=== PATIENT | male | born 1970 | race Hispanic/Latino ===

== ENCOUNTER 2019-12-29 18:27 | Emergency (ER) | payer SELFPAY ==
[2019-12-29] MEDS ORDERED: MEPERIDINE HCL 25 MG/ML SYR ONE (20:00)
[2019-12-29] MEDS ORDERED: COLCHICINE 0.6 MG TAB ONE (20:01)
[2019-12-29] MEDS ORDERED: dexAMETHasone 4 MG/ML VIAL ONE (20:01)
[2019-12-29] MEDS ORDERED: LIDOCAINE 2% MPF 5 ML VIAL ONE (20:30)
[2019-12-29 22:08] LABS: Appearance TURBID (CLEAR); Body Fluid Source SYNOVIAL; Color of fluid Pink (COLORLESS)
[2019-12-29 22:51] LABS: Body Fluid WBC 16927 /mm^3
--- NOTE | 2019-12-30 00:33 | ER ---
Nurse's Notes [facility] Name: John Atkins Age: 49 yrs Sex: Male : 1970 Arrival Date: 12/29/2019 Time: 18:30 Bed 27 Private MD: Diagnosis: Effusion, left knee;Inflammatory arthritis, left knee, unspecified Presentation: 12/29 18:32 Transition of care: patient was not received from another setting of care. Care prior sv to arrival: None. 18:32 Method Of Arrival: Wheelchair sv 18:33 Presenting complaint: Patient states: left knee pain (hx Gout) that has been ongoing, sv reports was at the clinic today and felt nauseous and felt like he was going to pass out. Onset of symptoms was December 29, 2019. 18:33 Acuity: CASS 3 sv 18:36 Note interpreter for the deaf ID #[id number]. sv 19:49 Risk Assessment: Do you want to hurt yourself or someone else? Patient reports no ca1 desire to harm self or others. Initial Sepsis Screen: Does the patient meet any 2 criteria? No. Patient's initial sepsis screen is negative. Does the patient have a suspected source of infection? No. Patient's initial sepsis screen is negative. Triage Assessment: 18:36 General: Appears in no apparent distress. uncomfortable, well developed, Behavior is sv cooperative, appropriate for age, restless. Pain: Complains of pain in left knee. Neuro: Level of Consciousness is awake, alert, obeys commands, Oriented to person, place, time, situation. Respiratory: Respiratory effort is even, unlabored. Historical: - Allergies: 18:34 No Known Allergies; sv - PMHx: 18:34 Gout; sv - PSHx: 18:34 None; sv - Immunization history:: Adult Immunizations up to date. - Coronavirus screen:: The patient has NOT traveled to [place] in the past 14 days. Proceed with normal triage process as indicated. The patient has NOT had contact with known/suspected case of Coronavirus? Proceed with normal triage procedures. - Social history:: Smoking status: Patient denies any tobacco usage or history of. - Family history:: not pertinent. - Ebola Screening: : No symptoms or risks identified at this time. - Hospitalizations: : No recent hospitalization is reported. Screenin:45 Abuse screen: Denies threats or abuse. Denies injuries from another. Nutritional ca1 screening: No deficits noted. Tuberculosis screening: No symptoms or risk factors identified. Fall Risk Ambulatory Aid- Crutches/Cane/Walker (15 pts). Gait- Impaired (20 pts.). Assessment: 19:45 General: Appears in no apparent distress. uncomfortable, Behavior is calm, cooperative, ca1 appropriate for age. Pain: Complains of pain in left knee. Neuro: Level of Consciousness is awake, alert, obeys commands, Oriented to person, place, time, situation, Appropriate for age. Derm: Skin is intact, is healthy with good turgor, Skin is pink, warm \T\ dry. Musculoskeletal: Circulation, motion, and sensation intact. Capillary refill < 3 seconds, Range of motion: limited in left knee Swelling present in left leg and left knee. 20:50 Reassessment: Patient appears in no apparent distress at this time. Patient and/or ca1 family updated on plan of care and expected duration. Pain level reassessed. Patient is alert, oriented x 3, equal unlabored respirations, skin warm/dry/pink. 21:55 Reassessment: Patient appears in no apparent distress at this time. Patient and/or ca1 family updated on plan of care and expected duration. Pain level reassessed. Patient is alert, oriented x 3, equal unlabored respirations, skin warm/dry/pink. 23:43 Reassessment: Patient is alert, oriented x 3, equal unlabored respirations, skin bb warm/dry/pink. pt verbalized understanding of and agrees to plan of care discharge instructions given pt assisted to exit via wheelchair accompanied by family. Vital Signs: 18:32 BP 115 / 71; Pulse 107; Resp 22; Temp 97.2; Pulse Ox 99% ; Weight 99.79 kg; Height 5 sv ft. 7 in. (170.18 cm); 19:45 BP 146 / 86; Pulse 98; Resp 17 S; Pulse Ox 98% on R/A; ca1 20:50 BP 113 / 62; Pulse 106; Resp 17 S; Pulse Ox 95% on R/A; ca1 21:55 BP 115 / 69; Pulse 100; Resp 17 S; Pulse Ox 97% on R/A; ca1 23:42 BP 127 / 74; Pulse 104; Resp 18; Temp 97.9(O); Pulse Ox 97% on R/A; bb 18:32 Body Mass Index 34.46 (99.79 kg, 170.18 cm) sv ED Course: 18:30 Patient arrived in ED. as 18:31 Arm band placed on. sv 18:34 Triage completed. sv 19:40 Jamaal Mora MD is Attending Physician. rn 19:42 Eun Ferreira RN is Primary Nurse. ca1 19:45 Patient has correct armband on for positive identification. Bed in low position. Call ca1 light in reach. Side rails up X 1. Pulse ox on. NIBP on. 19:50 Inserted saline lock: 20 gauge in left antecubital area, using aseptic technique. ca1 20:25 Procedure consent explained by physician, signed by patient. ca1 20:56 L Knee Needle aspiration performed by Dr. Mora. Consent signed. Set up tray. Specimen ca1 obtained and sent to lab. Pt tolerated procedure well. 23:45 IV discontinued, intact, bleeding controlled, No redness/swelling at site. Pressure bb dressing applied. Administered Medications: 19:53 Drug: Colcrys 1.2 mg Route: PO; ca1 21:57 Follow up: Response: No adverse reaction; Pain is decreased ca1 19:55 Drug: Demerol 25 mg {Note: RASS - 0.} Route: IVP; Site: left antecubital; ca1 21:57 Follow up: Response: No adverse reaction; Pain is decreased; RASS: Alert and Calm (0) ca1 20:00 Drug: Decadron - Dexamethasone 10 mg Route: IVP; Site: left antecubital; ca1 21:57 Follow up: Response: No adverse reaction; Pain is decreased ca1 20:50 Drug: Lidocaine (1 %) 1 vials {Note: at L knee by Dr. Mora.} Volume: 5 ml; Route: ca1 Infiltration; Outcome: 23:12 Discharge ordered by . rn 23:44 Discharged to home via wheelchair, with family. bb 23:44 Condition: stable 23:44 Discharge instructions given to patient, Instructed on discharge instructions, follow up and referral plans. medication usage, Demonstrated understanding of instructions, follow-up care, medications, Prescriptions given X 2. 23:45 Patient left the ED. bb Signatures: Shauna Albert RN RN sv Martinez, Amelia as Ballard, Brenda, RN RN bb Jamaal Mora MD MD rn Acob Eun, RN RN ca1 Corrections: (The following items were deleted from the chart) 18:35 18:32 BP 115 / 71; Pulse 107bpm; Resp 22bpm; Pulse Ox 99%; Temp 97.2F; sv sv 19:49 19:45 Musculoskeletal: Circulation, motion, and sensation intact. Capillary refill < 3 ca1 seconds, Range of motion: limited in left knee ca1 21:26 20:56 L Knee Needle aspiration by Dr. Mora. Consent signed. Set up tray. Specimen ca1 obtained. Pt tolerated procedure well. ca1
--- NOTE | 2019-12-30 00:34 | EDPHYS ---
Physician Documentation [facility] Name: John Atkins Age: 49 yrs Sex: Male : 1970 Arrival Date: 12/29/2019 Time: 18:30 Bed 27 Private MD: ED Physician Jamaal Mora HPI: 12/29 19:47 This 49 yrs old Male presents to ER via Wheelchair with complaints of Knee rn Pain. 19:47 The patient presents with pain, swelling. The complaints affect the left knee. Onset: rn The symptoms/episode began/occurred 3 day(s) ago. Modifying factors: The symptoms are alleviated by remaining still, the symptoms are aggravated by movement, weight bearing, bending knee. Associated signs and symptoms: Pertinent positives: swelling, Pertinent negatives fever, weakness. Severity of symptoms: At their worst the symptoms were moderate, in the emergency department the symptoms are unchanged. The patient has experienced similar episodes in the past. Reports has gout, has been diagnosed before years ago, takes allopurinol and colchicine, but ran out about one month ago, reports several similar identical episodes in left knee before as well as right knee and left great toe. No trauma. No fever. Reports came for pain. . Historical: - Allergies: 18:34 No Known Allergies; sv - PMHx: 18:34 Gout; sv - PSHx: 18:34 None; sv - Immunization history:: Adult Immunizations up to date. - Coronavirus screen:: The patient has NOT traveled to [place] in the past 14 days. Proceed with normal triage process as indicated. The patient has NOT had contact with known/suspected case of Coronavirus? Proceed with normal triage procedures. - Social history:: Smoking status: Patient denies any tobacco usage or history of. - Family history:: not pertinent. - Ebola Screening: : No symptoms or risks identified at this time. - Hospitalizations: : No recent hospitalization is reported. ROS: 19:47 Constitutional: Negative for fever, chills, and weight loss, Eyes: Negative for injury, rn pain, redness, and discharge, Neck: Negative for injury, pain, and swelling, Cardiovascular: Negative for chest pain, palpitations, and edema, Respiratory: Negative for shortness of breath, cough, wheezing, and pleuritic chest pain, Abdomen/GI: Negative for abdominal pain, nausea, vomiting, diarrhea, and constipation, MS/Extremity: + left knee pain, negative for injury Skin: Negative for injury, rash, and discoloration, Neuro: Negative for headache, weakness, numbness, tingling, and seizure. Exam: 19:47 Constitutional: This is a well developed, well nourished patient who is awake, alert, rn appears uncomfortable Head/Face: Normocephalic, atraumatic. ENT: MMM Cardiovascular: Regular rate and rhythm. No pulse deficits. Respiratory: No increased work of breathing, no retractions or nasal flaring. Abdomen/GI: soft, non-tender MS/ Extremity: Pulses equal, no cyanosis. + moderate left knee effusion with some warmth, no erythema, + painful ROM left knee Neuro: Awake and alert, GCS 15, oriented to person, place, time, and situation. Cranial nerves II-XII grossly intact. Motor strength 5/5 in all extremities. Sensory grossly intact. Vital Signs: 18:32 BP 115 / 71; Pulse 107; Resp 22; Temp 97.2; Pulse Ox 99% ; Weight 99.79 kg; Height 5 sv ft. 7 in. (170.18 cm); 19:45 BP 146 / 86; Pulse 98; Resp 17 S; Pulse Ox 98% on R/A; ca1 20:50 BP 113 / 62; Pulse 106; Resp 17 S; Pulse Ox 95% on R/A; ca1 21:55 BP 115 / 69; Pulse 100; Resp 17 S; Pulse Ox 97% on R/A; ca1 23:42 BP 127 / 74; Pulse 104; Resp 18; Temp 97.9(O); Pulse Ox 97% on R/A; bb 18:32 Body Mass Index 34.46 (99.79 kg, 170.18 cm) sv Procedures: 20:58 Joint Treatment: Aspiration of left knee using 20g spinal needle after lidocaine rn administered. Removed 5 ml's of yellow fluid, bloody fluid, Specimen sent to lab. Dressed with band aid, Patient tolerated well. MDM: 19:40 Patient medically screened. rn 19:47 ED course: Recommended joint aspiration to confirm gout, patient declines, states came rn here for pain medication and knows it is gout. Identical to previous episodes of gout.. 20:30 Differential diagnosis: Gout, knee effusion. Data reviewed: vital signs, nurses notes. rn Counseling: I had a detailed discussion with the patient and/or guardian regarding:. ED course: Spoke again with patient, feels better, now ok with joint aspiration, consented. . 23:11 ED course: Pt feels much better, gram stain neg for organisms, WBC only 5-10 on gram rn stain, cell count consistent more with inflammatory arthritis and given history of identical episodes in past, fits with his story. Is not diabetic/immunocompromised/use IV drugs. Will dc home with pain meds and steroids, with pcp f/u, and given return precautions. Will f/u fluid culture and call back if needed. . 23:14 ED course: Pt with negative crystals in fluid, told him and likely has rn inflammatory arthritis and may not have been gout in past since synovial fluid never performed. . 12/29 20:58 Order name: Fluid Cell Count,Body rn 12/29 20:58 Order name: Crystals, Fluid rn 12/29 20:58 Order name: Body Fluid Culture 12/29 23:02 Order name: Body Fluid Crystals EDKS 12/29 23:02 Order name: Body Fluid Cell Count EDKS 12/29 23:09 Order name: Body Fluid Culture [facility] 12/29 19:46 Order name: IV Start; Complete Time: 20:08 rn 12/29 23:14 Order name: Body Fluid Culture EDKS Administered Medications: 19:53 Drug: Colcrys 1.2 mg Route: PO; ca1 21:57 Follow up: Response: No adverse reaction; Pain is decreased ca1 19:55 Drug: Demerol 25 mg {Note: RASS - 0.} Route: IVP; Site: left antecubital; ca1 21:57 Follow up: Response: No adverse reaction; Pain is decreased; RASS: Alert and Calm (0) ca1 20:00 Drug: Decadron - Dexamethasone 10 mg Route: IVP; Site: left antecubital; ca1 21:57 Follow up: Response: No adverse reaction; Pain is decreased ca1 20:50 Drug: Lidocaine (1 %) 1 vials {Note: at L knee by Dr. Mora.} Volume: 5 ml; Route: ca1 Infiltration; Disposition: 12/29/19 23:12 Discharged to Home. Impression: Effusion, left knee, Inflammatory arthritis, left knee, unspecified. - Condition is Stable. - Discharge Instructions: Arthritis, Knee Effusion, Reactive Arthritis. - Prescriptions for Tylenol- Codeine #3 300-30 mg Oral Tablet - take 1 tablet by ORAL route every 6 hours As needed; 20 tablet. Medrol (Stewart) 4 mg Oral Tablets, Dose Pack - take 1 tablet by ORAL route as directed - follow package instructions; 1 packet. - Medication Reconciliation Form, Thank You Letter, Antibiotic Education, Prescription Opioid Use form. - Follow up: Private Physician; When: As needed; Reason: Recheck today's complaints, Re-evaluation by your physician. - Problem is an acute exacerbation. - Symptoms have improved. Signatures: Dispatcher [employer] EDMS Shauna Albert RN RN sv Echo Duenas RN RN bb Jamaal Mora MD MD rn Acob, KELSEY Haq RN ca1 Corrections: (The following items were deleted from the chart) 23:45 23:12 12/29/2019 23:12 Discharged to Home. Impression: Effusion, left knee; bb Inflammatory arthritis, left knee, unspecified. Condition is Stable. Discharge Instructions: Gout, Knee Effusion. Prescriptions for Tylenol-Codeine #3 300-30 mg Oral Tablet - take 1 tablet by ORAL route every 6 hours As needed; 20 tablet, Allopurinol 100 mg Oral Tablet - take 1 tablet by ORAL route once daily Do not take during acute gout flare/attack; 30 tablet, Medrol (Stewart) 4 mg Oral Tablets, Dose Pack - take 1 tablet by ORAL route as directed - follow package instructions; 1 packet. and Forms are Medication Reconciliation Form, Thank You Letter, Antibiotic Education, Prescription Opioid Use. Follow up: Private Physician; When: As needed; Reason: Recheck today's complaints, Re-evaluation by your physician. Problem is an acute exacerbation. Symptoms have improved. rn
[2019-12-30 03:25] VITALS: O2SAT 97
[2019-12-30 03:26] VITALS: BP 127/74; TEMP 97.9
== END 2019-12-29 23:45 | disposition home or self-care (01) ==
LOC: ER 18:27
PROC: 0S9G3ZX Drainage of Left Ankle Joint, Percutaneous Approach, Diagnostic (ICD-10-PCS; principal; 2019-12-29)
DX: M25.462 Effusion, left knee (principal); M13.862 Other specified arthritis, left knee; M10.9 Gout, unspecified
CPT/HCPCS: 36415; 87070; 89050; 89060; 96374; 96375; 99284; J2175

== ENCOUNTER 2022-07-14 15:12 | Emergency (ER) | payer SELFPAY ==
[2022-07-14] MEDS ORDERED: GABAPENTIN 300 MG CAP ONE (15:59)
[2022-07-14] MEDS ORDERED: MAGNESIUM SULFATE 1 gm IVPB 1 GM/100 ML BAG IV ONE (15:59)
[2022-07-14] MEDS ORDERED: NA CHLORIDE 0.9% 1,000 ML ONE (15:59)
[2022-07-14 16:16] LABS: Absolute Lymphocytes (CBC) 1.8 K/uL (0.7-4.9); Hematocrit 36.1 % (39.6-49.0); MCV 86.1 fL (80-100); MPV 7.7 fL (7.6-11.3)
[2022-07-14 16:30] LABS: SARS-CoV-2 Antigen Rapid Res Negative (Negative)
[2022-07-14 17:10] LABS: Albumin 2.9 g/dL (3.4-5.0); Bilirubin Total 0.5 mg/dL (0.2-1.0); Magnesium 1.9 mg/dL (1.8-2.4); Phosphorus 2.7 mg/dL (2.5-4.9); Potassium 3.7 mmol/L (3.5-5.1); Protein, Total 8.1 g/dL (6.4-8.2); Uric Acid 4.2 mg/dL (3.5-7.2)
--- NOTE | 2022-07-14 17:29 | ER ---
Nurse's Notes [facility] Name: John Atkins Age: 52 yrs Sex: Male : 1970 Arrival Date: 07/14/2022 Time: 15:15 Bed 9 Private MD: Diagnosis: Inflammatory arthritis Presentation: 07/14 15:23 Chief complaint: Patient states: Bilateral knee and Bilateral wrists pain for at least kr3 2 weeks. Has trouble sleeping. Shaking due to severe pain for 2 days. Coronavirus screen: Vaccine status: Patient reports receiving the 2nd dose of the covid vaccine. Client indicates they have traveled out of the [place] in the last 14 days. Client traveled to: [place] fatigue, fever, headache, muscle pain, Client presents with at least one sign or symptom that may indicate coronavirus-19. Standard/surgical mask placed on the client. Ebola Screen: Patient denies travel to an Ebola-affected area in the 21 days before illness onset. Initial Sepsis Screen: Does the patient meet any 2 criteria? No. Patient's initial sepsis screen is negative. Does the patient have a suspected source of infection? Yes: Bone or joint infection. Risk Assessment: Do you want to hurt yourself or someone else? Patient reports no desire to harm self or others. Onset of symptoms was July 01, 2022. 15:23 Method Of Arrival: EMS kr3 15:23 Acuity: CASS 3 kr3 Triage Assessment: 15:25 General: Appears uncomfortable, ill, Behavior is cooperative, appropriate for age. kr3 Pain: Complains of pain in knees/wrists Pain currently is 10 out of 10 on a pain scale. Quality of pain is described as aching, throbbing. Neuro: Reports weakness shaking. Musculoskeletal: Reports pain in B knees/B wrists. Historical: - Allergies: 15:22 No Known Allergies; kr3 - PMHx: 15:22 Gout; Hypertensive disorder; Hypercholesterolemia; kr3 - PSHx: 15:22 None; kr3 - Immunization history:: Client reports receiving the 2nd dose of the Covid vaccine. - Social history:: Smoking status: Patient denies any tobacco usage or history of. Screenin:09 Abuse screen: Denies threats or abuse. Denies injuries from another. Nutritional hb screening: No deficits noted. Tuberculosis screening: No symptoms or risk factors identified. Fall Risk None identified. Assessment: 16:07 General: Appears in no apparent distress. uncomfortable, Behavior is calm, cooperative, hb flat. Pain: Noted to be grimacing, moaning, withdrawn. Neuro: Level of Consciousness is awake, alert, obeys commands, Oriented to person, place, time, situation. Cardiovascular: Patient's skin is warm and dry. Respiratory: Respiratory effort is even, unlabored, Respiratory pattern is regular, symmetrical. GI: Reports lower abdominal pain, upper abdominal pain. : No signs and/or symptoms were reported regarding the genitourinary system. EENT: No signs and/or symptoms were reported regarding the EENT system. Derm: Skin is pink, warm \T\ dry. Musculoskeletal: Reports pain in bilateral ankles, wrists, knees. 17:12 Reassessment: Patient appears in no apparent distress at this time. Patient and/or hb family updated on plan of care and expected duration. Pain level reassessed. Patient is alert/active/playful, equal unlabored respirations, skin warm/dry/pink. Vital Signs: 15:23 BP 133 / 78; Pulse 96; Resp 18; Temp 97.9; Pulse Ox 97% ; Weight 77.11 kg; Height 5 ft. kr3 8 in. (172.72 cm); Pain 10/10; 15:23 Body Mass Index 25.85 (77.11 kg, 172.72 cm) kr3 ED Course: 15:15 Patient arrived in ED. rg4 15:25 Triage completed. kr3 15:25 Arm band placed on. kr3 15:33 Mar Hyatt FNP-C [facility]. snw 15:33 Ravin Ware MD is Attending Physician. snw 16:02 Inserted saline lock: 20 gauge in right antecubital area, using aseptic technique. hb Blood collected. 16:06 Felicita Toth, RN is Primary Nurse. hb 16:08 Patient has correct armband on for positive identification. hb 17:56 No provider procedures requiring assistance completed. IV discontinued, intact, hb bleeding controlled, No redness/swelling at site. Administered Medications: 16:06 Drug: Neurontin (gabapentin) 300 mg Route: PO; hb 17:35 Follow up: Response: No adverse reaction hb 16:07 Drug: NS 0.9% 1000 ml Route: IV; Rate: 75 ml/hr; Site: right antecubital; hb 18:30 Follow up: IV Status: Completed infusion; IV Intake: 150ml hb 16:07 Drug: Magnesium Sulfate 1 grams Route: IVPB; Infused Over: 1 hrs; Site: right hb antecubital; 17:05 Follow up: Response: No adverse reaction; IV Status: Infusion continued; IV Intake: hb 100ml 17:27 Drug: Decadron - Dexamethasone 10 mg Route: IVP; Site: right antecubital; hb 17:56 Follow up: Response: No adverse reaction hb Medication: 16:08 VIS not applicable for this client. hb Intake: 17:05 IV: 100ml; Total: 100ml. hb 18:30 IV: 150ml; Total: 250ml. hb Outcome: 17:29 Discharge ordered by . snw 17:56 Discharged to home ambulatory, with significant other. hb 17:56 Condition: stable 17:56 Discharge instructions given to patient, significant other, Instructed on discharge instructions, Demonstrated understanding of instructions, follow-up care, medications, Prescriptions given X 2. 18:16 Patient left the ED. hb Signatures: Mar Hyatt, JUSTICE COURT DEPUTY CLERK-C JUSTICE COURT DEPUTY CLERK-Csnw Felicita Toth, RN RN Janine Diggs rg4 Kristina Guthrie, RN RN kr3
--- NOTE | 2022-07-14 17:29 | EDPHYS ---
Physician Documentation [facility] Name: John Atkins Age: 52 yrs Sex: Male : 1970 Arrival Date: 07/14/2022 Time: 15:15 Bed 9 Private MD: CAROL ANN Physician Ravin Ware HPI: 07/14 16:08 This 52 yrs old Male presents to ER via EMS with complaints of Abdominal Pain. snw 16:08 pt seen in [place] two months ago for joint pain. Given colchicine, allopurinol. snw Initially improved. Pt returned two weeks later and was told to double dose of allopurinol and colchicine and given another anti-inflammatory and flexeril. Pt comes in today moaning, with severe pain to splinted wrists and bilateral knees and ankles. Severity of symptoms: At their worst the symptoms were moderate severe. The patient has experienced similar episodes in the past. as noted. Historical: - Allergies: 15:22 No Known Allergies; kr3 - PMHx: 15:22 Gout; Hypertensive disorder; Hypercholesterolemia; kr3 - PSHx: 15:22 None; kr3 - Immunization history:: Client reports receiving the 2nd dose of the Covid vaccine. - Social history:: Smoking status: Patient denies any tobacco usage or history of. ROS: 16:06 Constitutional: Negative for fever, chills, and weight loss, Eyes: Negative for injury, snw pain, redness, and discharge, ENT: Negative for injury, pain, and discharge, Neck: Negative for injury, pain, and swelling, Cardiovascular: Negative for chest pain, palpitations, and edema, Respiratory: Negative for shortness of breath, cough, wheezing, and pleuritic chest pain, Abdomen/GI: Negative for abdominal pain, nausea, vomiting, diarrhea, and constipation, Back: Negative for injury and pain, : Negative for injury, bleeding, discharge, and swelling, Skin: Negative for injury, rash, and discoloration, Neuro: Negative for headache, weakness, numbness, tingling, and seizure, Psych: Negative for depression, anxiety, suicide ideation, homicidal ideation, and hallucinations. 16:06 MS/extremity: Positive for decreased range of motion, pain, tenderness, of the all joints. Exam: 16:06 Constitutional: This is a well developed, well nourished patient who is awake, alert, snw and in no acute distress. Head/Face: Normocephalic, atraumatic. Eyes: Pupils equal round and reactive to light, extra-ocular motions intact. Lids and lashes normal. Conjunctiva and sclera are non-icteric and not injected. Cornea within normal limits. Periorbital areas with no swelling, redness, or edema. ENT: Nares patent. No nasal discharge, no septal abnormalities noted. Tympanic membranes are normal and external auditory canals are clear. Oropharynx with no redness, swelling, or masses, exudates, or evidence of obstruction, uvula midline. Mucous membranes moist. Neck: Trachea midline, no thyromegaly or masses palpated, and no cervical lymphadenopathy. Supple, full range of motion without nuchal rigidity, or vertebral point tenderness. No Meningismus. Chest/axilla: Normal chest wall appearance and motion. Nontender with no deformity. No lesions are appreciated. Cardiovascular: Regular rate and rhythm with a normal S1 and S2. No gallops, murmurs, or rubs. Normal PMI, no JVD. No pulse deficits. Respiratory: Lungs have equal breath sounds bilaterally, clear to auscultation and percussion. No rales, rhonchi or wheezes noted. No increased work of breathing, no retractions or nasal flaring. Abdomen/GI: Soft, non-tender, with normal bowel sounds. No distension or tympany. No guarding or rebound. No evidence of tenderness throughout. Back: No spinal tenderness. No costovertebral tenderness. Full range of motion. Skin: Warm, dry with normal turgor. Normal color with no rashes, no lesions, and no evidence of cellulitis. Neuro: Awake and alert, GCS 15, oriented to person, place, time, and situation. Cranial nerves II-XII grossly intact. Motor strength 5/5 in all extremities. Sensory grossly intact. Cerebellar exam normal. Normal gait. Psych: Awake, alert, with orientation to person, place and time. Behavior, mood, and affect are within normal limits. 16:06 Musculoskeletal/extremity: ROM: limited active range of motion, in all extremities, limited passive range of motion due to pain, Circulation is intact in all extremities. wrists, elbows, knees, and ankles tender to touch.. Vital Signs: 15:23 BP 133 / 78; Pulse 96; Resp 18; Temp 97.9; Pulse Ox 97% ; Weight 77.11 kg; Height 5 ft. kr3 8 in. (172.72 cm); Pain 10; 15:23 Body Mass Index 25.85 (77.11 kg, 172.72 cm) kr3 MDM: 15:34 Patient medically screened. snw 17:33 Data reviewed: vital signs, nurses notes. Data interpreted: Pulse oximetry: on room air snw is 97 %. Interpretation: normal. Counseling: I had a detailed discussion with the patient and/or guardian regarding: the historical points, exam findings, and any diagnostic results supporting the discharge/admit diagnosis, the presence of at least one elevated blood pressure reading (>120/80) during this emergency department visit, lab results, the need for outpatient follow up, for definitive care, to return to the emergency department if symptoms worsen or persist or if there are any questions or concerns that arise at home. Response to treatment: the patient's symptoms have mildly improved after treatment. Special discussion: I have referred the patient to see his PCP for further evaluation of high blood pressure. Based on the history and exam findings, there is no indication for further emergent testing or inpatient evaluation. I discussed with the patient/guardian the need to see the engraver rubber for further evaluation of the symptoms. 07/14 15:42 Order name: CBC with Diff; Complete Time: 17:05 snw 07/14 15:42 Order name: CMP; Complete Time: 17:10 snw 07/14 15:42 Order name: Sed Rate; Complete Time: 17:05 snw 07/14 15:42 Order name: Magnesium; Complete Time: 17:10 snw 07/14 15:42 Order name: Phosphorus; Complete Time: 17:10 snw 07/14 15:42 Order name: Uric Acid; Complete Time: 17:10 snw 07/14 15:42 Order name: SARS RAPID; Complete Time: 16:39 snw Administered Medications: 16:06 Drug: Neurontin (gabapentin) 300 mg Route: PO; hb 17:35 Follow up: Response: No adverse reaction hb 16:07 Drug: NS 0.9% 1000 ml Route: IV; Rate: 75 ml/hr; Site: right antecubital; hb 18:30 Follow up: IV Status: Completed infusion; IV Intake: 150ml hb 16:07 Drug: Magnesium Sulfate 1 grams Route: IVPB; Infused Over: 1 hrs; Site: right hb antecubital; 17:05 Follow up: Response: No adverse reaction; IV Status: Infusion continued; IV Intake: hb 100ml 17:27 Drug: Decadron - Dexamethasone 10 mg Route: IVP; Site: right antecubital; hb 17:56 Follow up: Response: No adverse reaction hb Disposition Summary: 07/14/22 17:29 Discharge Ordered Location: Home snw Condition: Stable snw Diagnosis - Inflammatory arthritis snw Followup: snw - With: Emergency Department - When: As needed - Reason: Worsening of condition Followup: snw - With: Private Physician - When: 2 - 3 days - Reason: Recheck today's complaints, Continuance of care, Re-evaluation by your physician Discharge Instructions: - Discharge Summary Sheet snw - Rheumatoid Arthritis snw - Rheumatoid Factor Test snw Forms: - Medication Reconciliation Form snw - Thank You Letter snw - Antibiotic Education snw - Prescription Opioid Use snw Prescriptions: - Neurontin 300 mg Oral Capsule - take 1 capsule by ORAL route At bedtime; 20 capsule; Refills: 0, Product snw Selection Permitted - Prednisone 20 mg Oral Tablet - take 1 tablet by ORAL route every 12 hours for 5 days; 10 tablet; Refills: 0, snw Product Selection Permitted Signatures: Dispatcher [employer] Mar Perez FNP-C POCKET ASSEMBLER-[employer] Felicita Toth, RN RN Kristina Guthrie RN RN kr3
[2022-07-14] MEDS ORDERED: dexAMETHasone 10 MG/ML VIAL ONE (17:38)
[2022-07-14 18:57] VITALS: BP 133/78; TEMP 97.9; O2SAT 97
[2022-07-16 02:46] LABS: Rheumatoid Factor NEG (NEG)
== END 2022-07-14 18:16 | disposition home or self-care (01) ==
LOC: ER 15:12
DX: M13.80 Other specified arthritis, unspecified site (principal); I10 Essential (primary) hypertension
CPT/HCPCS: 36415; 80053; 83735; 84100; 84550; 85025; 85652; 86038; 86430; 87811; 96361; 96365; 96375; 99284; J1100; J3475; J7030